=== PATIENT | female | born 1980 | race African-American/Black ===

== ENCOUNTER 2021-07-13 15:34 | Emergency (ER) | payer OTHER ==
[2021-07-13 16:03] VITALS: BP 141/78; PULSE 98; TEMP 98.3; BMI 27.6
[2021-07-13] MEDS ORDERED: KETOROLAC TROMETHAMINE 30 MG/1 ML VIAL IM ONE (16:54)
[2021-07-13] MEDS ORDERED: LIDOCAINE 5% TOPICAL PATCH TP ONE (16:54)
[2021-07-13] MEDS ORDERED: KETOROLAC TROMETHAMINE 30 MG/1 ML VIAL ONE (16:54)
[2021-07-13] MEDS ORDERED: LIDOCAINE 5% TOPICAL PATCH ONE (16:54)
[2021-07-13] MEDS ORDERED: LIDOCAINE PATCH REMOVAL MC ONE (22:00)
== END 2021-07-13 17:17 | disposition home or self-care (01) ==
LOC: JER 15:34 → JERFT 15:34
PROC: 3E0233Z Introduction of Anti-inflammatory into Muscle, Percutaneous Approach (ICD-10-PCS; principal; 2021-07-13)
DX: M54.42 Lumbago with sciatica, left side (principal)
CPT/HCPCS: 99284-25

== ENCOUNTER 2021-11-05 15:03 | Emergency (ER) | payer OTHER ==
[2021-11-05 15:21] VITALS: BP 136/82; TEMP 98.7; BMI 27.1
[2021-11-05] MEDS ORDERED: ACETAMINOPHEN 500 MG TABLET (FP) PO ONE (16:35)
[2021-11-05] MEDS ORDERED: IBUPROFEN 600 MG TABLET (FP) PO ONE ×3 (16:35→17:26)
[2021-11-05] MEDS ORDERED: ACETAMINOPHEN 500 MG TABLET (FP) ONE ×2 (17:05→17:27)
[2021-11-05 18:09] VITALS: PULSE 98
[2021-11-07 07:06] LABS: SARS-CoV-2 NAA Detected (Not Detected)
== END 2021-11-05 19:16 | disposition home or self-care (01) ==
LOC: JER 15:03
DX: J11.1 Influenza due to unidentified influenza virus with other respiratory manifestations (principal)
CPT/HCPCS: 99283-25; C9803; U0003; U0005